=== PATIENT | male | born 1975 | race Caucasian/White ===

== ENCOUNTER 2018-09-26 00:17 | Inpatient (IN) | payer MEDICAID ==
[2018-09-26] MEDS: ACETAMINOPHEN 325 MG TAB PO (00:52)
[2018-09-26] MEDS: SODIUM CHLORIDE 0.9% 1L BAG IV* (00:53)
[2018-09-26 00:57] LABS: ADD MAN DIFF? NO
[2018-09-26 01:01] LABS: WHITE BLOOD COUNT 5.6 10^3/ul (4.8-10.8)
[2018-09-26 01:01] LABS: BASOPHILS % 0.5 % (0.0-2.0); EOSINOPHILS % 0.2 % (0.0-7.0); HEMATOCRIT 45.1 % (42.0-52.0); HEMOGLOBIN 15.7 g/dl (14.0-18.0); LYMPHOCYTES % 18.3 % (15.0-51.0); MEAN CORPUSCULAR HEMOGLOBIN 29.5 pg (29.0-33.0); MEAN CORPUSCULAR HGB CONC 34.8 g/dl (32.0-37.0); MEAN CORPUSCULAR VOLUME 84.8 fl (82.0-101.0); MEAN PLATELET VOLUME 9.1 fl (7.4-10.4); MONOCYTES % 0.4 % (0.0-11.0); NEUTROPHIL # 4.5 10^3/ul (1.6-7.5); NEUTROPHILS % 80.4 % (39.0-77.0); PLATELET COUNT 273 10^3/UL (140-415); POSITIVE DIFF @See below; RED BLOOD COUNT 5.32 10^6/ul (4.70-6.10); RED CELL DISTRIBUTION WIDTH 12.5 % (11.5-14.5)
[2018-09-26 01:02] LABS: ADD UMIC NO; UR ASCORBIC ACID NEGATIVE (NEGATIVE); UR BILIRUBIN (Dip) NEGATIVE (NEGATIVE); UR BLOOD (Dip) NEGATIVE (NEGATIVE); UR CLARITY CLEAR (CLEAR); UR COLOR YELLOW (YELLOW); UR GLUCOSE (Dip) 3+ mg/dL (NEGATIVE); UR KETONES (Dip) TRACE mg/dL (NEGATIVE); UR LEUKOCYTE ESTERASE (Dip) NEGATIVE Leu/ul (NEGATIVE); UR NITRITE (Dip) NEGATIVE (NEGATIVE); UR SPECIFIC GRAVITY (Dip) 1.037 (1.003-1.030); UR TOTAL PROTEIN (Dip) NEGATIVE (NEGATIVE); UR UROBILINOGEN (Dip) NEGATIVE (NEGATIVE)
[2018-09-26 01:27] LABS: ALANINE AMINOTRANSFERASE 29 IU/L (13-69); ALBUMIN 4.6 g/dl (3.3-4.9); ALBUMIN/GLOBULIN RATIO 1.15; ALKALINE PHOSPHATASE 112 IU/L (42-121); ANION GAP 16 (5-13); ASPARTATE AMINO TRANSFERASE 23 IU/L (15-46); BILIRUBIN,INDIRECT 0.7 mg/dl (0-1.1); BILIRUBIN,TOTAL 0.7 mg/dl (0.2-1.3); BLOOD UREA NITROGEN 14 mg/dl (7-20); CALCIUM 9.5 mg/dl (8.4-10.2); CARBON DIOXIDE 26 mmol/L (21-31); CHLORIDE 99 mmol/L (97-110); CREATININE 0.95 mg/dl (0.61-1.24); Estimated GFR > 60 mL/min (>60); GLUCOSE 300 mg/dl (70-220); LIPASE 65 U/L (23-300); POTASSIUM 3.6 mmol/L (3.5-5.1); SODIUM 141 mmol/L (135-144); TOTAL PROTEIN 8.6 g/dl (6.1-8.1)
[2018-09-26 01:28] LABS: INR 1.01; PROTIME 13.4 Sec (11.9-14.9)
[2018-09-26 01:29] LABS: PARTIAL THROMBOPLASTIN TIME 26.6 Sec (23.0-35.0)
[2018-09-26 01:34] LABS: LACTIC ACID 4.7 mmol/L (0.5-2.0)
[2018-09-26 01:38] LABS: TROPONIN-I < 0.012 ng/ml (0.000-0.120)
[2018-09-26] MEDS: CEFEPIME 2GM/50 ML (PMX) 50 ML IVPB (01:43)
[2018-09-26] MEDS: VANCOMYCIN 1 GM (PMX) 250 ML IVPB (02:02)
[2018-09-26] MEDS: ONDANSETRON 4 MG INJ IV ×3 (02:37→14:21)
[2018-09-26] MEDS: morphine 4 MG/ML VIAL IV (02:38)
[2018-09-26] MEDS: SOD CHLORIDE 0.9% 1,000 ML IV ×4 (03:30→16:03)
[2018-09-26 03:53] LABS: LACTIC ACID 2.7 mmol/L (0.5-2.0)
[2018-09-26] MEDS: HYDROmorphONE 0.5 MG/0.5 ML SYG IV (05:22)
[2018-09-26 05:42] LABS: LACTIC ACID 1.7 mmol/L (0.5-2.0)
[2018-09-26] MEDS ORDERED: ALBUTEROL/IPRATROPIUM (NEB) 3 ML AMP HHN (06:30)
[2018-09-26] MEDS ORDERED: NACL 0.9% 3 ML SYG IV (06:30)
[2018-09-26] MEDS ORDERED: GLYCOPYRROLATE 0.4 MG INJ (07:00)
[2018-09-26] MEDS ORDERED: GLUCOSE GEL 15 GRAM TUBE BUCCAL (07:00)
[2018-09-26] MEDS ORDERED: GLUCOSE GEL 15 GRAM TUBE PO ×2 (07:00)
[2018-09-26] MEDS ORDERED: GLUCAGON 1 MG INJ IM (07:00)
[2018-09-26] MEDS ORDERED: DEXTROSE 50% 50 ML SYRINGE IV ×2 (07:00)
[2018-09-26] MEDS ORDERED: NEOSTIGMINE 10 MG INJ (07:00)
[2018-09-26] MEDS ORDERED: LIDOCAINE 2% (SDV) 5 ML INJ (07:00)
[2018-09-26] MEDS: PIPER-TAZO 3.375 GM IV (PMX) 100 ML IVPB ×5 (07:20→16:28)
[2018-09-26] MEDS: DEXTROSE 5%-0.45% NACL 1,000 ML IV ×2 (09:28→14:58)
[2018-09-26] MEDS: INSULIN DETEMIR [LEVEMIR] (100 UNITS/ML) SYG SC (09:31)
[2018-09-26] MEDS: INSULIN ASPART [NOVOLOG] 3 ML PEN SC ×4 (09:31→21:25)
[2018-09-26] MEDS ORDERED: PHENYLephrine (100 MCG/ML) 5ML SYG (12:09)
[2018-09-26] MEDS ORDERED: SUCCINYLCHOLINE CHLORIDE 100 MG/5 ML SYG IV (12:09)
[2018-09-26] MEDS ORDERED: METOCLOPRAMIDE 10 MG INJ (12:09)
[2018-09-26] MEDS ORDERED: PROPOFOL 20 ML (12:09)
[2018-09-26] MEDS ORDERED: FAMOTIDINE 20 MG INJ (12:09)
[2018-09-26] MEDS ORDERED: ROCURONIUM 50 MG INJ (12:09)
[2018-09-26] MEDS ORDERED: ESMOLOL 10 ML (12:48)
[2018-09-26] MEDS: BUPIVACAINE 0.5%/EPI (SDV) 30 ML INJ (13:09)
[2018-09-26] MEDS ORDERED: ONDANSETRON 4 MG INJ (13:29)
[2018-09-26] MEDS ORDERED: OXYCODONE/ACETAMINOPHEN (5/325) TAB PO ×3 (14:00→14:30)
[2018-09-26] MEDS ORDERED: ONDANSETRON 4 MG INJ IV (14:00)
[2018-09-26] MEDS ORDERED: morphine 2 MG INJ IV (14:00)
[2018-09-26] MEDS: MEPERIDINE 25 MG INJ IV (14:21)
[2018-09-26] MEDS: HYDROmorphONE 1 MG/5 ML IV SYRINGE IV ×3 (14:26→14:39)
[2018-09-26] MEDS ORDERED: FENTAnyl 50 MCG/ML VIAL IV ×2 (14:30)
[2018-09-26] MEDS ORDERED: LABETALOL HCL 20MG INJ IV (14:30)
[2018-09-26] MEDS: METOPROLOL 5 MG INJ IV (15:10)
[2018-09-26] MEDS ORDERED: METOPROLOL 5 MG INJ (15:12)
[2018-09-27] MEDS: PIPER-TAZO 3.375 GM IV (PMX) 100 ML IVPB ×4 (01:11→17:03)
[2018-09-27] MEDS: morphine 2 MG INJ IV (01:28)
[2018-09-27] MEDS: SOD CHLORIDE 0.9% 1,000 ML IV ×3 (01:30→16:13)
[2018-09-27] MEDS: ACCU-CHEK XX (02:00)
[2018-09-27 06:38] LABS: WHITE BLOOD COUNT 9.3 10^3/ul (4.8-10.8)
[2018-09-27 06:38] LABS: HEMATOCRIT 37.5 % (42.0-52.0); HEMOGLOBIN 12.7 g/dl (14.0-18.0); MEAN CORPUSCULAR HEMOGLOBIN 29.1 pg (29.0-33.0); MEAN CORPUSCULAR HGB CONC 33.9 g/dl (32.0-37.0); MEAN CORPUSCULAR VOLUME 85.8 fl (82.0-101.0); MEAN PLATELET VOLUME 9.7 fl (7.4-10.4); PLATELET COUNT 210 10^3/UL (140-415); POSITIVE DIFF @See below; RED BLOOD COUNT 4.37 10^6/ul (4.70-6.10); RED CELL DISTRIBUTION WIDTH 13.2 % (11.5-14.5)
[2018-09-27 06:58] LABS: ADD MAN DIFF? YES
[2018-09-27 07:04] LABS: CHOLESTEROL 139 mg/dl (100-200)
[2018-09-27 07:04] LABS: CHOL/HDL RATIO 5.5 RATIO; HDL CHOLESTEROL 25 mg/dl (27-67); LDL CHOLESTEROL,CALCULATED 76 mg/dl; TRIGLYCERIDES 192 mg/dl (0-149)
[2018-09-27 07:07] LABS: ALANINE AMINOTRANSFERASE 27 IU/L (13-69); ALBUMIN 3.2 g/dl (3.3-4.9); ALBUMIN/GLOBULIN RATIO 0.96; ALKALINE PHOSPHATASE 62 IU/L (42-121); ANION GAP 10 (5-13); ASPARTATE AMINO TRANSFERASE 24 IU/L (15-46); BILIRUBIN,INDIRECT 0.9 mg/dl (0-1.1); BILIRUBIN,TOTAL 0.9 mg/dl (0.2-1.3); BLOOD UREA NITROGEN 8 mg/dl (7-20); CALCIUM 7.9 mg/dl (8.4-10.2); CARBON DIOXIDE 26 mmol/L (21-31); CHLORIDE 101 mmol/L (97-110); CREATININE 0.97 mg/dl (0.61-1.24); Estimated GFR > 60 mL/min (>60); GLUCOSE 194 mg/dl (70-220); MAGNESIUM 1.6 mg/dl (1.7-2.5); PHOSPHORUS 2.4 mg/dl (2.5-4.9); POTASSIUM 3.3 mmol/L (3.5-5.1); SODIUM 137 mmol/L (135-144); TOTAL PROTEIN 6.5 g/dl (6.1-8.1)
[2018-09-27] MEDS: INSULIN ASPART [NOVOLOG] 3 ML PEN SC ×6 (08:03→20:52)
[2018-09-27 08:23] LABS: BAND NEUTROPHILS #M 1.3 10^3/ul (0.0-0.6); BAND NEUTROPHILS % (M) 14 % (0-4); LYMPHOCYTES #M 1.5 10^3/ul (0.8-2.9); LYMPHOCYTES % (M) 17 % (15-51); METAMYELOCYTES #M 0.1 10^3/ul (0.0-0.0); METAMYELOCYTES %M 2 % (0-0); MONOCYTE #M 0.4 10^3/ul (0.3-0.9); MONOCYTES % (M) 5 % (0-11); MYELOCYTES % (M) 1 % (0-0); PLATELET ESTIMATE NORMAL; SEG NEUT #M 5.8 10^3/ul (1.6-7.5); SEGMENTED NEUTROPHILS (M) % 61 % (39-77); SMUDGE%M 8 % (0-0)
[2018-09-27] MEDS: INSULIN DETEMIR [LEVEMIR] (100 UNITS/ML) SYG SC (08:28)
[2018-09-27 09:56] LABS: HEMOGLOBIN A1C 9.7 % (0-5.9)
[2018-09-27] MEDS: ACETAMINOPHEN 325 MG TAB PO (12:10)
[2018-09-27] MEDS: POTASSIUM CHLORIDE (SR) 20 MEQ TAB PO (12:21)
[2018-09-27] MEDS: DOCUSATE SODIUM 100 MG CAP PO (17:03)
[2018-09-27] MEDS: FAMOTIDINE 20 MG TAB PO (20:34)
[2018-09-27] MEDS ORDERED: morphine LIQ (10 MG/5 ML) CUP PO (23:30)
[2018-09-28] MEDS: PIPER-TAZO 3.375 GM IV (PMX) 100 ML IVPB ×2 (00:33→05:49)
[2018-09-28] MEDS: OXYCODONE/ACETAMINOPHEN (5/325) TAB PO (00:33)
[2018-09-28] MEDS: ACCU-CHEK XX (02:36)
[2018-09-28] MEDS: SOD CHLORIDE 0.9% 1,000 ML IV (05:49)
[2018-09-28] MEDS: BISACODYL (EC) 5 MG TAB PO (07:59)
[2018-09-28] MEDS: INSULIN ASPART [NOVOLOG] 3 ML PEN SC ×7 (08:09→20:27)
[2018-09-28] MEDS: INSULIN DETEMIR [LEVEMIR] (100 UNITS/ML) SYG SC (08:10)
[2018-09-28 08:25] LABS: ADD MAN DIFF? NO
[2018-09-28 08:27] LABS: BASOPHILS % 0.2 % (0.0-2.0); EOSINOPHILS % 0.3 % (0.0-7.0); HEMATOCRIT 37.6 % (42.0-52.0); LYMPHOCYTES # 1.4 10^3/ul (0.8-2.9); LYMPHOCYTES % 14.8 % (15.0-51.0); MEAN CORPUSCULAR HGB CONC 34.6 g/dl (32.0-37.0); MEAN CORPUSCULAR VOLUME 83.9 fl (82.0-101.0); MEAN PLATELET VOLUME 9.3 fl (7.4-10.4); MONOCYTE # 0.6 10^3/ul (0.3-0.9); MONOCYTES % 6.4 % (0.0-11.0); NEUTROPHIL # 7.4 10^3/ul (1.6-7.5); NEUTROPHILS % 77.9 % (39.0-77.0); PLATELET COUNT 210 10^3/UL (140-415); RED BLOOD COUNT 4.48 10^6/ul (4.70-6.10); RED CELL DISTRIBUTION WIDTH 13.2 % (11.5-14.5)
[2018-09-28 08:27] LABS: WHITE BLOOD COUNT 9.4 10^3/ul (4.8-10.8)
[2018-09-28 08:57] LABS: ANION GAP 9 (5-13); BLOOD UREA NITROGEN 11 mg/dl (7-20); CALCIUM 8.4 mg/dl (8.4-10.2); CARBON DIOXIDE 26 mmol/L (21-31); CHLORIDE 104 mmol/L (97-110); CREATININE 0.75 mg/dl (0.61-1.24); Estimated GFR > 60 mL/min (>60); GLUCOSE 187 mg/dl (70-220); POTASSIUM 3.6 mmol/L (3.5-5.1); SODIUM 139 mmol/L (135-144)
[2018-09-28] MEDS: metroNIDAZOLE 500 MG/NS (PMX) 100 ML IVPB ×2 (13:57→22:04)
[2018-09-28] MEDS: FAMOTIDINE 20 MG TAB PO (20:17)
[2018-09-28] MEDS: CIPROFLOXACIN 400MG/D5W 200 ML IVPB (21:01)
[2018-09-29] MEDS: ACCU-CHEK XX (01:22)
[2018-09-29 05:30] LABS: ADD MAN DIFF? NO
[2018-09-29 05:34] LABS: WHITE BLOOD COUNT 7.8 10^3/ul (4.8-10.8)
[2018-09-29 05:34] LABS: BASOPHILS % 0.3 % (0.0-2.0); EOSINOPHILS % 0.5 % (0.0-7.0); HEMATOCRIT 38.2 % (42.0-52.0); LYMPHOCYTES # 1.4 10^3/ul (0.8-2.9); LYMPHOCYTES % 17.9 % (15.0-51.0); MEAN CORPUSCULAR VOLUME 85.3 fl (82.0-101.0); MEAN PLATELET VOLUME 9.4 fl (7.4-10.4); MONOCYTE # 0.5 10^3/ul (0.3-0.9); MONOCYTES % 6.6 % (0.0-11.0); NEUTROPHIL # 5.8 10^3/ul (1.6-7.5); NEUTROPHILS % 74.2 % (39.0-77.0); PLATELET COUNT 235 10^3/UL (140-415); RED BLOOD COUNT 4.48 10^6/ul (4.70-6.10); RED CELL DISTRIBUTION WIDTH 12.7 % (11.5-14.5)
[2018-09-29] MEDS: metroNIDAZOLE 500 MG/NS (PMX) 100 ML IVPB (05:44)
[2018-09-29] MEDS: INSULIN ASPART [NOVOLOG] 3 ML PEN SC ×4 (08:42→12:56)
[2018-09-29] MEDS: INSULIN DETEMIR [LEVEMIR] (100 UNITS/ML) SYG SC (08:44)
[2018-09-29] MEDS: CIPROFLOXACIN 400MG/D5W 200 ML IVPB (10:17)
== END 2018-09-29 15:10 | disposition home or self-care (01) | DRG 854 ==
LOC: E/R 00:17 → MS1 09-28 14:21 → TEL 02:25
PROC: 0DTJ0ZZ Resection of Appendix, Open Approach (ICD-10-PCS; principal; 2018-09-26 12:00)
PROC: 0DJD4ZZ Inspection of Lower Intestinal Tract, Percutaneous Endoscopic Approach (ICD-10-PCS; 2018-09-26 12:00)
DX: A41.9 Sepsis, unspecified organism (principal); K35.30 Acute appendicitis with localized peritonitis, without perforation or gangrene; E11.65 Type 2 diabetes mellitus with hyperglycemia; E66.9 Obesity, unspecified; Z68.34 Body mass index [BMI] 34.0-34.9, adult; Z53.31 Laparoscopic surgical procedure converted to open procedure
CPT/HCPCS: 36415; 71045; 74176; 80048; 80053; 80061; 81003; 82962; 83036; 83605; 83690; 83735; 84100; 84484; 85025; 85610; 85730; 87040; 87081; 87086; 88304; 90686; 93005; 96374; 96375; 99291-25